=== PATIENT | female | born 1985 | race Caucasian/White ===

== ENCOUNTER → 2016-11-03 | Outpatient (CLI) | payer OTHER ==
[~2016-11-03] MED LIST: ALBUAER3 INH; BENZ100 PO; COLA100C PO; COLA100C3 PO; LEVO88TA2 PO; NORC5TAB PO; PREN29TA PO; ZITHTAB PO
[2016-11-03 12:20] LABS: AUTOMATED NEUTROPHIL # 6.7 TH/MM3 (1.8-7.7); BASOPHIL # 0.1 TH/MM3 (0-0.2); BASOPHIL % 0.9 % (0.0-2.0); EOSINOPHIL # 0.1 TH/MM3 (0-0.4); EOSINOPHIL % 0.6 % (0.0-4.0); HEMATOCRIT 41.8 % (35.0-46.0); HEMO FLAGS DIFF FINAL; LYMPH % 22.3 % (9.0-44.0); LYMPHOCYTE # 2.2 TH/MM3 (1.0-4.8); MEAN CELL VOLUME 88.7 FL (80.0-100.0); MEAN CORPUSCULAR HEMOGLOBIN 29.6 PG (27.0-34.0); MEAN CORPUSCULAR HGB CONC 33.3 % (32.0-36.0); MONO % 7.4 % (0.0-8.0); NEUT % 68.8 % (16.0-70.0); PLATELET COUNT 317 TH/MM3 (150-450); RED BLOOD COUNT 4.71 MIL/MM3 (4.00-5.30); RED CELL DISTRIBUTION WIDTH 13.4 % (11.6-17.2); WHITE BLOOD COUNT 9.8 TH/MM3 (4.0-11.0)
[2016-11-03 12:28] LABS: BICARBONATE 29.9 MEQ/L (21.0-32.0); POTASSIUM 3.9 MEQ/L (3.5-5.1)
== END ==
LOC: CPRE 11:42
PROVIDERS: ATTEND Surgery
DX: Z01.810 Encounter for preprocedural cardiovascular examination (principal); E04.2 Nontoxic multinodular goiter
CPT/HCPCS: 36415; 80048; 85025

== ENCOUNTER → 2016-11-08 | Day surgery (SDC) | payer OTHER ==
[~2016-11-08] VITALS: Ht 160 cm; Wt 74.0 kg
[~2016-11-08] MED LIST changes: +ACETAMINOPHEN 1000 MG/100 ML 100 ML IV ONE; +ACETAMINOPHEN/HYDROcodone 325 MG/5 MG TAB PO PRN; -ALBUAER3 INH; -BENZ100 PO; +BUPIVACAINE HCL PF 0.5% 30 ML VIAL ONE; +CHLORHEXIDINE GLUCONATE 2 % 1 PACK (2 CLOTHS) TOPICAL PRN; -COLA100C3 PO; +DO NOT ADM ANY ANTICOAGULANT DRUGS PRN; +HYDROmorphone HCL PF 2 MG/ML VIAL ONE; +INSULIN HUMAN REGULAR 1,000 UNITS/10 ML VIAL SQ PRN; +LACTATED RINGER'S 1000 ML INJ 2,000 ML IV ONE; +LACTATED RINGER'S 1000 ML IV PRN; +LIDOCAINE 0.5%/EPINEPHrine 1:200,000 SOLN 50 ML VIAL ONE; +METOPROLOL TARTRATE 25 MG TAB PO PRN; +METOPROLOL TARTRATE 5 MG/5 ML VIAL ONE; +MIDAZOLAM HCL 2 MG/2 ML VIAL ONE; +ONDANSETRON HCL 4 MG/2 ML VIAL IV PUSH ONE; +PHENYLEPH/NS 1000 MCG/10 ML SYR IV ONE; +POVIDONE IODINE 5% (ANTISEPSIS KIT) 4 APPLICATIONS EACH NARE PRN; +PROPOFOL 200 MG/20 ML AMP IV ONE; +ROCURONIUM INJ 100 MG/10 ML VIAL IV ONE; +SODIUM CHLORID 0.9% 500 ML IV PRN; +SUGAMMADEX SODIUM 200 MG/2 ML VIAL IV PUSH ONE; -ZITHTAB PO
--- NOTE | 2016-11-08 09:45 | HHI.PR ---
cc: Chema Borrero MD Immediate Post Op Note Procedure Date: Nov 08, 2016 Pre Op Diagnosis: (1) Thyroid mass of unclear etiology (2) Mass of thyroid region Post Op Diagnosis: (1) Thyroid mass of unclear etiology (2) Mass of thyroid region Surgeon: Chema Borrero [employer](s): Please refer our record Procedure: Left thyroidectomy Findings: Left thyroid nodule Complications: None Specimen(s) removed: Thyroid left lobe Estimated blood loss: Minimal Anesthesia: General Drains: None IVF Patient to: PACU Patient Condition: Good Implant/Devices: SEE IMPLANT LOG (if applicable) Date/Time of Procedure: SEE SURGICAL CARE RECORD Chema Borrero MD Nov 08, 2016 09:45
[2016-11-08 11:42] VITALS: BP 130/86; PULSE 72; RESP 16; TEMP 97.8; O2SAT 100
--- NOTE | 2016-11-08 14:15 | EKG ---
Date Performed: 11/08/2016 Time Performed: 07:05:03 PTAGE: 31 years EKG: Sinus rhythm WITH SINUS ARRHYTHMIA NORMAL ECG NO PREVIOUS TRACING DOCTOR: Carlos Rowland Interpretating Date/Time 11/08/2016 14:11:42
--- NOTE | 2016-11-09 08:47 | MP ---
cc: MARQUIS BORRERO M.D. [facility] DATE OF SURGERY: 11/08/2016 PREOPERATIVE DIAGNOSIS Thyroid mass suspicious for Hurthle cell. POSTOPERATIVE DIAGNOSIS Thyroid mass suspicious for Hurthle cell. PROCEDURE Partial thyroidectomy, left lobe. ANESTHESIA General. SURGEON Dr. Borrero. INDICATION This is a pleasant 31-year-old female who had a palpable enlarging left thyroid mass. This was biopsied in [place] and was suspicious for Hurthle cell carcinoma. Options were given to the patient. Plans were made for above. DETAILS OF PROCEDURE The patient was taken to the operating room and placed in the supine position. After anesthesia her neck is prepped with Betadine. We make a curvilinear incision about 3 cm above the sternal notch. We dissect down through the platysma muscle this. The strap muscles are then retracted laterally. The palpable mass could be palpated in the inferior lobe. We take the inferior thyroidal vessel down with the Harmonic, the middle thyroidal vein with the Harmonic and the superior thyroid vessels with the Harmonic. The gland and the nodule are then elevated medially and small vessels are cauterized. We used the neuromonitor to localize both visually and with the neuromonitor the path of the recurrent laryngeal nerve which is preserved. The thyroid is then elevated off the trachea avoiding injury to the recurrent laryngeal nerve and the thyroid is then amputated off the trachea at the isthmus to the right. This is passed off the field. We then place a suture at the superior aspect of the left thyroid lobe for pathological orientation. The area was then irrigated. Hemostasis was adequate. We recheck our dissection site, re-identify the recurrent laryngeal nerve which appears to be intact. We then reapproximate the strap muscles in the midline with 3-0 Vicryl. The platysma muscle is re-approximated where I with interrupted 3-0 Vicryl. The skin is closed with 4-0 Monocryl. Steri-Strips applied. Sterile bandage applied. The patient was extubated and had no evidence of recurrent laryngeal nerve injury. She was able to take deep breaths and speak. Discussion ensued with the in the postoperative period. MD HILARY Oropeza/ARANZA /11:13 AM /8:30 AM
== END | disposition home or self-care (01) ==
LOC: HSDC 05:43
PROVIDERS: ATTEND Surgery
DX: E06.3 Autoimmune thyroiditis (principal); E04.1 Nontoxic single thyroid nodule; E03.9 Hypothyroidism, unspecified; K21.9 Gastro-esophageal reflux disease without esophagitis; Z79.899 Other long term (current) drug therapy
CPT/HCPCS: 00320; 60210; 88307; 93005; J0131; J1170; J2250; J2370; J2405; J3010; J7120